=== PATIENT | male | born 2000 | race Caucasian/White ===

== ENCOUNTER 2020-02-17 08:28 | Emergency (ER) | payer OTHER ==
[2020-02-17 08:44] VITALS: BP 133/67
--- NOTE | 2020-02-17 09:07 | ED Physician Documentation ---
History of Present Illness - Stated complaint Stated Complaint: LOSS OF HEARING IN LEFT EAR - Chief complaint Chief Complaint: Heent - History obtained from History obtained from: Patient - History of Present Illness Timing: How many days ago (2) Pain level max: 0 Pain level now: 0 - Additonal information Additional information: Patient is a 19-year-old male who presents to the emergency department with complaint of decreased hearing out of the left ear for the past 2 to 3 days. Started after a flight home from [facility]. Nothing makes it better or worse. No fevers. No chills. No congestion. No sore throat. No cough. No nausea. No vomiting. No other medical history. No trauma Review of Systems Constitutional: denies: Fever, Chills GI: denies: Vomiting, Diarrhea Skin: denies: Rash Musculoskeletal: denies: Neck pain, Back pain Neurologic: denies: Headache PD PAST MEDICAL HISTORY - Past Medical History Past Medical History: No - Past Surgical History Past Surgical History: No - Allergies Allergies/Adverse Reactions: Allergies Allergy/AdvReac Type Severity Reaction Status Date / Time No Known Drug Allergies Allergy Verified 02/17/20 08:43 - Living Situation Living Arrangement: reports: At home - Social History Does the pt have substance abuse?: No - Family History Family history: reports: Non contributory PD ED PE NORMAL - Vitals Vital signs reviewed: Yes - General General: Alert and oriented X 3, No acute distress - HEENT HEENT: Moist mucous membranes, Other (Right ear is normal. Left ear reveals impacted cerumen.) - Neck Neck: Supple, no meningeal sign - Cardiac Cardiac: RRR - Respiratory Respiratory: No respiratory distress, Clear bilaterally - Derm Derm: Warm and dry - Neuro Neuro: Alert and oriented X 3 Results - Vitals Vitals: Vital Signs - 24 hr 02/17/20 08:40 Temperature 36.7 C Heart Rate 87 Respiratory 16 Rate Blood Pressure 133/67 H O2 Saturation 97 Oxygen O2 Source Room air PD MEDICAL DECISION MAKING - ED course Complexity details: considered differential, d/w patient ED course: 19-year-old male with a left-sided cerumen impaction. The ear was irrigated, cerumen removed and symptoms resolved. This document was made in part using voice recognition software. While efforts are made to proofread this document, sound alike and grammatical errors may occur. Departure - Departure Disposition: 01 Home, Self Care Clinical Impression: Cerumen impaction Qualifiers: Laterality: left Qualified Code(s): H61.22 - Impacted cerumen, left ear Condition: Good Instructions: ED Earwax Removal Follow-Up: your,doctor as needed [Other] Comments: Follow up with your doctor as needed for further care. Return if you worsen.
== END 2020-02-17 09:20 | disposition home or self-care (01) ==
LOC: ED 08:28
DX: H61.22 Impacted cerumen, left ear (principal)
CPT/HCPCS: 69209; 99282

== ENCOUNTER 2023-11-05 17:29 | Emergency (ER) | payer BC, OTHER ==
[2023-11-05 17:35] VITALS: BP 151/89; O2SAT 97
--- NOTE | 2023-11-05 18:53 | ED Physician Documentation ---
History of Present Illness - Stated complaint Stated Complaint: LT EAR PX - Chief complaint Chief Complaint: Heent - History obtained from History obtained from: Patient - History of Present Illness Timing: Prior to arrival - Additonal information Additional information: Patient is a 23-year-old male presenting to the emergency department with left ear ringing and pain and muffled voice. He notes symptoms have been going on for the past few days. He notes similar episode back in August that resolved on its own. He notes at the time he did not have any tinnitus today he notes tinnitus started yesterday but prior to this was having some muffled hearing. Patient denies any dizziness he does not feel off balance when he is walking. He has not seen anyone else for this no fevers no sore throat no runny nose no cough. PD PAST MEDICAL HISTORY - Past Medical History Past Medical History: Yes Derm: Eczema - Past Surgical History Past Surgical History: No - Present Medications Home Medications: Ambulatory Orders Medication Instructions Recorded Confirmed Amox/Clav 875/125 [Augmentin] 1 each PO Q12H #20 tablet 11/05/23 - Allergies Allergies/Adverse Reactions: Allergies Allergy/AdvReac Type Severity Reaction Status Date / Time No Known Drug Allergies Allergy Verified 11/05/23 17:31 - Social History Does the pt smoke?: No Smoking Status: Never smoker Does the pt drink ETOH?: Yes Does the pt have substance abuse?: No - Immunizations Immunizations are current?: Yes PD ED PE NORMAL - Vitals Vital signs reviewed: Yes - General General: Alert and oriented X 3 - HEENT HEENT: Atraumatic, PERRL, EOMI (Left tympanic membrane shows mild erythema no significant bulging tympanic membrane intact. No obvious discharge no erythema to ear canal. Right ear shows no significant erythema no signs of serous fluid bilaterally. No lymphadenopathy no tragal motion tenderness. No mastoid tenderness bilaterall) - Neck Neck: Supple, no meningeal sign, No adenopathy - Cardiac Cardiac: RRR, No gallop, No rub, Strong equal pulses - Respiratory Respiratory: No respiratory distress, Clear bilaterally - Abdomen Abdomen: Normal bowel sounds, Non tender, No organomegaly - Derm Derm: Normal color - Neuro Neuro: Alert and oriented X 3 Results - Vitals Vitals: Vital Signs - 24 hr 11/05/23 17:32 Temperature 36.8 C Heart Rate 103 H Respiratory 18 Rate Blood Pressure 151/89 H O2 Saturation 97 Oxygen O2 Source Room air PD Medical Decision Making - ED course Complexity details: d/w patient ED course: Patient is a 23-year-old male presenting with left ear tinnitus, pain and muffled hearing symptoms been going on for the past few days tinnitus started yesterday. He has not taken anything for his symptoms he denies any feeling off balance no right ear pain or tinnitus. He has not seen anyone else for these problems. Vitals stable on arrival physical exam shows mild erythema to left TM no mastoid tenderness no significant lymphadenopathy oropharynx appears clear and right TM shows no significant erythema or bulging. Discussed with patient reassuring findings will give course of antibiotics to see if this improves symptoms however discussed warning signs of worsening pain swelling behind ear fevers or feeling off balance while walking or worsening tinnitus. Patient understands and is agreeable with plan will follow-up with PCP in outpatient setting. Departure - Departure Disposition: 01 Home, Self Care Clinical Impression: Acute ear pain, Acute otitis media Condition: Good Instructions: ED Otitis Media Acute Adult, ED Otitis Media Acute Ch Prescriptions: Amox/Clav 875/125 [Augmentin] 1 each PO Q12H #20 tablet Comments: Follow-up with your PCP in 1 week if symptoms persist after antibiotic treatment return to ED if you become off balance of worsening pain worsening tinnitus or any other new or worsening symptoms. Forms: PCP List
== END 2023-11-05 19:10 | disposition home or self-care (01) ==
LOC: ED 17:29
DX: H66.92 Otitis media, unspecified, left ear (principal)
CPT/HCPCS: 99282; 99283